=== PATIENT | male | born 1945 | race Caucasian/White ===

== ENCOUNTER → 2016-06-01 | Outpatient (CLI) | payer MEDICARE, OTHER ==
[~2016-06-01] MED LIST: REGADENOSON 0.4 MG/5 ML DISP.SYRIN. IV ONE
== END | disposition home or self-care (01) ==
LOC: PCVCIMAG 08:35
PROVIDERS: ATTEND Internal Medicine Cardiovascular Disease
DX: I65.23 Occlusion and stenosis of bilateral carotid arteries (principal); I25.10 Atherosclerotic heart disease of native coronary artery without angina pectoris; I25.2 Old myocardial infarction
CPT/HCPCS: 78452; 93017; 93880; A9500; J2785

== ENCOUNTER → 2017-02-10 | Outpatient (CLI) | payer MEDICARE, OTHER ==
--- NOTE | 2017-02-10 11:25 | PCVCIMAG ---
EXAM: BILATERAL CAROTID DUPLEX INDICATION: Carotid Occlusive Disease. FINDINGS: Doppler Measurements (centimeters per second): RIGHT: Peak CCA-76, Peak ECA-77, Diastolic ICA-49, Peak ICA-152, ICA/CCA Ratio-2.0. LEFT: Peak CCA-67, Peak ECA-127, Diastolic ICA-55, Peak ICA-203, ICA/CCA Ratio-3.0. RIGHT CAROTID: The carotid bulb has moderate plaque. The proximal internal carotid artery shows 50-60% stenosis. The common carotid artery shows no significant stenosis. The external carotid artery shows no significant stenosis. LEFT CAROTID: The carotid bulb has moderate plaque. The proximal internal carotid artery shows 60-70% stenosis. The common carotid artery shows no significant stenosis. The external carotid artery shows no significant stenosis. Antegrade flow in both vertebral arteries. IMPRESSION: 50-60% stenosis of the right internal carotid artery with moderate plaque. 60-70% stenosis of the left internal carotid artery with moderate plaque. LOC:[id number]
== END | disposition home or self-care (01) ==
LOC: PCVCCLINIC 10:44
PROVIDERS: ATTEND Internal Medicine Cardiovascular Disease
DX: I25.10 Atherosclerotic heart disease of native coronary artery without angina pectoris (principal); I10 Essential (primary) hypertension; E78.00 Pure hypercholesterolemia, unspecified; E11.8 Type 2 diabetes mellitus with unspecified complications; I25.5 Ischemic cardiomyopathy; I77.9 Disorder of arteries and arterioles, unspecified; I65.23 Occlusion and stenosis of bilateral carotid arteries; R94.31 Abnormal electrocardiogram [ECG] [EKG]; I45.10 Unspecified right bundle-branch block; I44.0 Atrioventricular block, first degree; Z79.82 Long term (current) use of aspirin; Z79.899 Other long term (current) drug therapy; Z79.84 Long term (current) use of oral hypoglycemic drugs
CPT/HCPCS: 80061; 93005; 93880; G0463

== ENCOUNTER → 2017-11-22 | Outpatient (CLI) | payer MEDICARE ==
--- NOTE | 2017-11-22 14:18 | PCVCIMAG ---
EXAM: BILATERAL CAROTID DUPLEX INDICATION: Carotid Occlusive Disease. FINDINGS: Doppler Measurements (centimeters per second): RIGHT: Peak CCA-69, Peak ECA-83, Diastolic ICA-78, Peak ICA-192, ICA/CCA Ratio-2.8. LEFT: Peak CCA-81, Peak ECA-146, Diastolic ICA-36, Peak ICA-150, ICA/CCA Ratio-1.8. RIGHT CAROTID: The carotid bulb has moderate plaque. The proximal internal carotid artery shows 60-70% stenosis. The common carotid artery shows no significant stenosis. The external carotid artery shows no significant stenosis. LEFT CAROTID: The carotid bulb has moderate plaque. The proximal internal carotid artery shows 50% stenosis. The common carotid artery shows no significant stenosis. The external carotid artery shows no significant stenosis. Antegrade flow in both vertebral arteries. IMPRESSION: 60-70% stenosis of the right internal carotid artery with moderate plaque. 50% stenosis of the left internal carotid artery with moderate plaque. Little overall change since February 2017. LOC:[id number]
--- NOTE | 2017-11-22 14:20 | PCVCIMAG ---
APPROVED REPORT Imaging Protocol: Rest Tc-99m/Stress Tc-99m 1 day Study performed: 11/22/2017 08:31:05 Indication: CAD , Ischemic Cardiomyopathy Patient Location: Out-Patient Stress Nurse: Dagmar Nunez RN AL Tech:Lena Pireslynnette [facility] Ht: 5 ft 9 in Wt: 235 lbs BSA: 2.21 m2 HR: 68 bpm BP: 136/68 mmHg BMI: 34.6 Rhythm: SR, RBBB, L-AFB Medical History Medical History: HTN, Hyperlipidemia, CAD, Age, DM Medications: ASA, Vytorin, Metformin, NitroSL, Quinapril, Victoza Allergies: No known drug allergies Previous Cardiac Procedures: CABG 2005 Pretest Chest Pain Characteristics: No chest pain Exercise History: Physically active Resting Data Rest SPECT myocardial perfusion imaging was performed in supine position 45 minutes following the intravenous injection of 9.9 mCi of Tc-99m Sestamibi. Time of rest injection: 829 Date: 11/22/2017 Administration Route: IV Administration Site: Right AC Pharmacologic Stress Pharmacologic stress test was performed by injecting Regadenoson 0.4 mg IV push over 10-15 seconds immediately followed by the intravenous injection of 32.3 mCi of Tc-99m Sestamibi. Time of stress injection: 944 Date: 11/22/2017 Administration Route: IV Administration Site: Right AC Gated Stress SPECT was performed 45 minutes after stress injection. The images were gated to evaluate regional wall motion and calculate left ventricular ejection fraction. Stress Test Details Stress Test: Pharmacologic stress was paired with low level exercise. Reason for pharmacologic stress test: physical limitation. HRMax Heart Rate (APMHR): 147 bpm Resting HR: 68 bpmTarget HR (85% APMHR): 124 bpm Max HR Achieved: 93 bpm % of APMHR: 63 Recovery HR: 73 bpm BP Resting BP: 136/68 mmHg Recovery BP: 137/74 mmHg ECG Resting ECG: SR, RBBB, L-AFB Stress ECG: SR, RBBB, L-AFB Recovery ECG: SR, RBBB, L-AFB Clinical Reason for Termination: Completed protocol Stress Symptoms: Dyspnea, Leg Fatigue, Lightheaded Exercise duration: 4 min 00 sec Exercise capacity: 1.6 METs Symptoms resolved with caffeine. Stress ECG Conclusion ECG: Non-ischemic Study Quality Study: Good Study Data Post stress, the left ventricular ejection was 66%.. SSS: 4 SRS: 5 SDS: 2 TID = 1.29. 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 Mild post-stress ventricular dilatation is present. This is a nonspecific findings but may sometimes be seen with balanced ischemia. 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 Mild post-stress ventricular dilatation is present. This is a nonspecific findings but may sometimes be seen with balanced ischemia. Post stress, the left ventricular ejection was 66%. No change since prior study dated May 2016. Interpreted by: Fausto Pemberton MD Electronically Approved: 11/22/2017 14:01:25 <Conclusion> ECG: Non-ischemic
== END | disposition home or self-care (01) ==
LOC: PCVCIMAG 07:47
PROVIDERS: ATTEND Internal Medicine Cardiovascular Disease
DX: I25.10 Atherosclerotic heart disease of native coronary artery without angina pectoris (principal); I65.23 Occlusion and stenosis of bilateral carotid arteries; I25.5 Ischemic cardiomyopathy; E78.00 Pure hypercholesterolemia, unspecified; I10 Essential (primary) hypertension; E08.00 Diabetes mellitus due to underlying condition with hyperosmolarity without nonketotic hyperglycemic-hyperosmolar coma (NKHHC); Z95.1 Presence of aortocoronary bypass graft; Z79.82 Long term (current) use of aspirin; Z79.899 Other long term (current) drug therapy
CPT/HCPCS: 78452; 93005; 93017; 93880; A9500; G0463; J2785

== ENCOUNTER → 2018-08-30 | Outpatient (CLI) | payer MEDICARE ==
--- NOTE | 2018-08-30 10:25 | PCVCIMAG ---
EXAM: BILATERAL CAROTID DUPLEX INDICATION: Carotid Occlusive Disease. FINDINGS: Doppler Measurements (centimeters per second): RIGHT: Peak CCA-70, Peak ECA-92, Diastolic ICA-55, Peak ICA-192, ICA/CCA Ratio-2.7. LEFT: Peak CCA-84, Peak ECA-186, Diastolic ICA-42, Peak ICA-201, ICA/CCA Ratio-2.4. RIGHT CAROTID: The carotid bulb has moderate plaque. The proximal internal carotid artery shows 60-70% stenosis. The common carotid artery shows no significant stenosis. The external carotid artery shows no significant stenosis. LEFT CAROTID: The carotid bulb has moderate plaque. The proximal internal carotid artery shows 60-70% stenosis. The common carotid artery shows no significant stenosis. The external carotid artery shows 60% stenosis. Antegrade flow in both vertebral arteries. IMPRESSION: 60-70% stenosis of the right internal carotid artery with moderate plaque. 60-70% stenosis of the left internal carotid artery with moderate plaque. Since November 2017 right carotid stenosis is unchanged and there has been mild increase in left carotid stenosis. LOC:[id number]
== END | disposition home or self-care (01) ==
LOC: PCVCIMAG 08:41
PROVIDERS: ATTEND Internal Medicine Cardiovascular Disease
DX: I65.23 Occlusion and stenosis of bilateral carotid arteries (principal); I25.10 Atherosclerotic heart disease of native coronary artery without angina pectoris; E78.00 Pure hypercholesterolemia, unspecified; I10 Essential (primary) hypertension; E11.9 Type 2 diabetes mellitus without complications; Z79.82 Long term (current) use of aspirin
CPT/HCPCS: 36415; 80061; 93005; 93880; G0463

== ENCOUNTER → 2018-12-26 | Outpatient (CLI) | payer MEDICARE ==
--- NOTE | 2018-12-26 08:47 | PCVCIMAG ---
EXAM: BILATERAL CAROTID DUPLEX INDICATION: Carotid Occlusive Disease. Right retinal artery occlusion. FINDINGS: Doppler Measurements (centimeters per second): RIGHT: Peak CCA-73, Peak ECA-109, Diastolic ICA-84, Peak ICA-265, ICA/CCA Ratio-3.6. LEFT: Peak CCA-73, Peak ECA-183, Diastolic ICA-42, Peak ICA-240, ICA/CCA Ratio-3.3. RIGHT CAROTID: The carotid bulb has moderate plaque. The proximal internal carotid artery shows 80% stenosis. The common carotid artery shows no significant stenosis. The external carotid artery shows no significant stenosis. LEFT CAROTID: The carotid bulb has moderate plaque. The proximal internal carotid artery shows 70% stenosis. The common carotid artery shows no significant stenosis. The external carotid artery shows 60% stenosis. Antegrade flow in both vertebral arteries. IMPRESSION: 80% stenosis of the right internal carotid artery with moderate plaque. 70% stenosis of the left internal carotid artery with moderate plaque. Since August 2015 right and left internal carotid stenosis have shown mild progression. LOC:[id number]
--- NOTE | 2018-12-26 12:11 | PCVCIMAG ---
APPROVED REPORT Study performed: 12/26/2018 08:27:35 EXAM: Comprehensive 2D, Doppler, and color-flow Echocardiogram Patient Location: Echo lab Status: routine BSA: 2.19 HR: 77 bpmBP: 120/74 mmHg Rhythm: NSR Other Information Study Quality: Technically Difficult Risk Factors: Cardiac Risk Factors: HTN, Hyperlipidemia Indications CABG, Carotid disease, visual disturbance. 2D Dimensions IVSd: 11.74 (7-11mm)LVOT Diam: 18.07 (18-24mm) LVDd: 41.85 mm PWd: 10.81 (7-11mm)Ascending Ao: 30.90 (22-36mm) LVDs: 24.84 (25-40mm) Left Atrium: 37.13 (27-40mm) Aortic Root: 27.25 mm LV Single Plane 4CH: 40.53 % LV Single Plane 2CH: 52.01 % Volumes Left Atrial Volume (Systole) Single Plane 4CH: 35.53 mLSingle Plane 2CH: 44.82 mL LA ESV Index: 19.00 mL/m2 Aortic Valve AoV Peak Minesh.: 1.45 m/s AO Peak Gr.: 8.39 mmHgLVOT Max P.50 mmHg LVOT Max V: 1.37 m/s PACO Vmax: 2.42 cm2 Mitral Valve E/A Ratio: 0.7 MV Decel. Time: 167.73 ms MV E Max Minesh.: 0.63 m/s MV A Minesh.: 0.94 m/s TDI E/Lateral E': 7.88E/Medial E': 9.00 Medial E' Minesh.: 0.07 m/s Lateral E' Minesh.: 0.08 m/s Pulmonary Valve PV Peak Gr.: 3.53 mmHg Pulmonary Vein P Vein S: 0.63 m/sP Vein A: 0.40 m/s P Vein D: 0.33 m/sP Vein A Dur.: 110.7 msec P Vein S/D Ratio: 1.91 Tricuspid Valve TR Peak Minesh.: 2.48 m/s TR Peak Gr.: 24.52 mmHg Left Ventricle The left ventricle is normal size. There is normal LV segmental wall motion. There is normal left ventricular wall thickness. Left ventricular systolic function is normal. The left ventricular ejection fraction is within the normal range. LVEF is 50-55%. Right Ventricle The right ventricle is normal size. The right ventricular systolic function is normal. Atria The left atrium size is normal. The right atrium size is normal. Aortic Valve The aortic valve is normal in structure. No aortic regurgitation is present. There is no aortic valvular stenosis. Mitral Valve The mitral valve is normal in structure. There is no mitral valve regurgitation noted. No evidence of mitral valve stenosis. Tricuspid Valve The tricuspid valve is normal in structure. Trace tricuspid regurgitation. Pulmonary artery pressure is 31mmHg. Pulmonic Valve The pulmonary valve is normal in structure. There is no pulmonic valvular regurgitation. Great Vessels The aortic root is normal in size. IVC is normal in size and collapses >50% with inspiration. Pericardium There is no pericardial effusion. <Conclusion> The left ventricle is normal size. LVEF is 50-55%. The right ventricle is normal size. The left atrium size is normal. The aortic valve is normal in structure. There is no aortic valvular stenosis. There is no mitral valve regurgitation noted. Trace tricuspid regurgitation. Pulmonary artery pressure is 31mmHg. The aortic root is normal in size. There is no pericardial effusion.
== END | disposition home or self-care (01) ==
LOC: PCVCIMAG 07:43
PROVIDERS: ATTEND Internal Medicine Cardiovascular Disease
DX: I65.23 Occlusion and stenosis of bilateral carotid arteries (principal); I25.10 Atherosclerotic heart disease of native coronary artery without angina pectoris; I10 Essential (primary) hypertension; I25.5 Ischemic cardiomyopathy; E78.00 Pure hypercholesterolemia, unspecified; H54.61 Unqualified visual loss, right eye, normal vision left eye; E08.00 Diabetes mellitus due to underlying condition with hyperosmolarity without nonketotic hyperglycemic-hyperosmolar coma (NKHHC); H34.231 Retinal artery branch occlusion, right eye; Z95.1 Presence of aortocoronary bypass graft; Z72.89 Other problems related to lifestyle; Z79.84 Long term (current) use of oral hypoglycemic drugs; Z79.82 Long term (current) use of aspirin
CPT/HCPCS: 36415; 80061; 93005; 93306; 93880; G0463

== ENCOUNTER → 2019-01-25 | Outpatient (CLI) | payer MEDICARE | END | disposition home or self-care (01) | LOC: PCVCCLINIC 15:00 | PROVIDERS: ATTEND Internal Medicine Cardiovascular Disease | DX: I25.10 Atherosclerotic heart disease of native coronary artery without angina pectoris (principal); I65.23 Occlusion and stenosis of bilateral carotid arteries; I25.5 Ischemic cardiomyopathy; I45.10 Unspecified right bundle-branch block; R94.31 Abnormal electrocardiogram [ECG] [EKG]; I10 Essential (primary) hypertension; E78.00 Pure hypercholesterolemia, unspecified; E08.00 Diabetes mellitus due to underlying condition with hyperosmolarity without nonketotic hyperglycemic-hyperosmolar coma (NKHHC); Z98.890 Other specified postprocedural states; Z72.89 Other problems related to lifestyle; Z88.0 Allergy status to penicillin | CPT/HCPCS: 93005; G0463 ==